=== PATIENT | male | born 1970 | race African-American/Black ===

== ENCOUNTER 2020-04-12 11:57 | Inpatient (IN) | payer SELFPAY ==
[~2020-04-12] VITALS: Ht 188 cm; Wt 113.4 kg
[~2020-04-12 11:57] MED LIST: CARDURA1 MG ORAL; IBUPROFEN600 MG ORAL; NKM; NORCO 10/3251 EA ORAL
[2020-04-12] MEDS ORDERED: Nitroglycerin 2% oint pkt TOPIC ONE (12:15)
[2020-04-12] MEDS ORDERED: LORazepam Inj 2mg/ml 1ml IV ONE (12:15)
[2020-04-12 12:17] VITALS: BP 152/98
--- NOTE | 2020-04-12 12:20 | NUR ---
ED Nurse Note: PT. AAOX4. AMBULATORY. PT. WALKED IN TO ER FROM HOME. PER PT., HE STARTED HAVING L-SIDED CP AT 0400 TODAY RADIATING TO HIS BACK. PER PT. HE TOOK 1GM OF ACETAMINOPHEN BUT NO RELIEF FROM IT. DENIES N/V. NO RESP DISTRESS NOTED AT THIS TIME
--- NOTE | 2020-04-12 12:26 | NUR ---
ED Nurse Note: CXR AT THE BEDSIDE
--- NOTE | 2020-04-12 12:43 | Emergency Room Report ---
History of Present Illness General Chief Complaint: Chest Pain Source: Patient Present Illness HPI Patient was awakened this morning with crushing substernal chest pain. Feels like somebody is sitting on his chest. Radiates somewhat towards his back. He has slight shortness of breath. In the past couple weeks he is had no dyspnea on exertion or chest pain symptoms. Patient does have risk factors of smoking. Has had lots of stress recently. Patient denies diabetes or high cholesterol. The patient denies hypertension however this is listed as one of his medical problems. Patient denies exposure to Covid positive contacts. No fevers, chills, sore throat, palpitations, nausea, vomiting, diarrhea, dysuria, abdominal pain, shortness of breath, joint pain, rashes, visual changes, dizziness, headache. Patient has a history of kidney stones. Allergies: Coded Allergies: No Known Allergies (Unverified , 12/31/12) COVID-19 Screening Contact w/high risk pt: No Experienced COVID-19 symptoms?: No COVID-19 Testing performed PATTERN FINISHER: No Patient History Past Medical History: see triage record Social History: Reports: smoking, alcohol use, drug use - THC Social History Narrative Iceberg 18/10 Reviewed Nursing Documentation: PMH: Agreed; PSxH: Agreed Nursing Documentation-PMH Hx Hypertension: Yes Review of Systems All Other Systems: negative except mentioned in HPI Physical Exam Vital Signs Date Time Temp Pulse Resp B/P (MAP) Pulse Ox O2 Delivery O2 Flow Rate FiO2 04/12/20 12:05 97.9 60 23 152/98 (116) 100 Room Air Sp02 EP Interpretation: reviewed, normal General Appearance: well appearing, no apparent distress, GCS 15, non-toxic Head: normocephalic Eyes: left eye other - Subconjunctival hemorrhage; bilateral eye PERRL, bilateral eye EOMI ENT: moist mucus membranes Neck: supple Respiratory: chest non-tender, lungs clear, normal breath sounds Cardiovascular #1: regular rate, rhythm, no edema Cardiovascular #2: 2+ radial (R) Gastrointestinal: normal inspection, normal bowel sounds, non tender, no mass, non-distended Musculoskeletal: back normal, normal range of motion, no calf tenderness, gait/station normal Neurologic: alert, oriented x3, grossly normal Psychiatric: other - Stressed Skin: no rash, warm/dry Medical Decision Making Diagnostic Impression: Primary Impression: Chest pain Qualified Codes: R07.9 - Chest pain, unspecified Additional Impression: Renal insufficiency ER Course Patient presents with crushing substernal chest pain with risk factors. Differential includes acute cardial infarction or acute coronary syndrome, reflux esophagitis, costochondritis, stress amongst others. Patient evaluated with EKG, chest x-ray and labs. Patient placed on a bed control specialist. Patient given aspirin, nitroglycerin paste and a dose of Ativan. EKG normal sinus rhythm with left axis deviation and minimal voltage criteria for left ventricular hypertrophy. Chest x-ray with globular heart. CBC normal. CMP with elevated BUN and creatinine. CPK slightly elevated. Minimally elevated BNP. Initial troponin negative. Patient still complaining about severe chest pain. Morphine administered. Patient still complaining about significant chest pain. Dilaudid ordered. Repeat troponin minimally elevated from previous but still normal. Due to risk factors and history patient admitted to telemetry to Dr. Page. Laboratory Tests Test 04/12/20 12:15 04/12/20 12:56 04/12/20 15:07 White Blood Count 9.2 K/UL (4.8-10.8) Red Blood Count 5.19 M/UL (4.70-6.10) Hemoglobin 15.1 G/DL (14.2-18.0) Hematocrit 43.1 % (42.0-52.0) Mean Corpuscular Volume 83 FL (80-99) Mean Corpuscular Hemoglobin 29.0 PG (27.0-31.0) Mean Corpuscular Hemoglobin Concent 34.9 G/DL (32.0-36.0) Red Cell Distribution Width 14.2 % (11.6-14.8) Platelet Count 218 K/UL (150-450) Mean Platelet Volume 8.8 FL (6.5-10.1) Neutrophils (%) (Auto) 72.1 % (45.0-75.0) Lymphocytes (%) (Auto) 18.4 % (20.0-45.0) L Monocytes (%) (Auto) 7.7 % (1.0-10.0) Eosinophils (%) (Auto) 0.3 % (0.0-3.0) Basophils (%) (Auto) 1.5 % (0.0-2.0) Prothrombin Time 10.7 SEC (9.30-11.50) Prothrombin Time INR 1.0 (0.9-1.1) Activated Partial Thromboplast Time 30 SEC (23-33) Sodium Level 139 MMOL/L (136-145) Potassium Level 3.9 MMOL/L (3.5-5.1) Chloride Level 104 MMOL/L (98-107) Carbon Dioxide Level 26 MMOL/L (21-32) Anion Gap 9 mmol/L (5-15) Blood Urea Nitrogen 17 mg/dL (7-18) Creatinine 1.4 MG/DL (0.55-1.30) H Estimated Glomerular Filtration Rate > 60 mL/min (>60) Glucose Level 124 MG/DL (74-106) H Calcium Level 8.5 MG/DL (8.5-10.1) Total Bilirubin 0.5 MG/DL (0.2-1.0) Aspartate Amino Transferase (AST) 17 U/L (15-37) Alanine Aminotransferase (ALT) 26 U/L (12-78) Alkaline Phosphatase 42 U/L (46-116) L Total Creatine Kinase 160 U/L (26-308) Troponin I 0.014 ng/mL (0.000-0.056) 0.018 ng/mL (0.000-0.056) Pro-B-Type Natriuretic Peptide 140 pg/mL (0-125) H Total Protein 6.9 G/DL (6.4-8.2) Albumin 3.7 G/DL (3.4-5.0) Globulin 3.2 g/dL Albumin/Globulin Ratio 1.2 (1.0-2.7) Urine Color Yellow Urine Appearance Clear Urine pH 6.5 (4.5-8.0) Urine Specific [place] 1.015 (1.005-1.035) Urine Protein Negative (NEGATIVE) Urine Glucose (UA) Negative (NEGATIVE) Urine Ketones 1+ (NEGATIVE) H Urine Blood Negative (NEGATIVE) Urine Nitrite Negative (NEGATIVE) Urine Bilirubin Negative (NEGATIVE) Urine Urobilinogen 1 MG/DL (0.0-1.0) H Urine Leukocyte Esterase 1+ (NEGATIVE) H Urine RBC 0 /HPF (0 - 0) Urine WBC 0-2 /HPF (0 - 0) Urine Squamous Epithelial Cells Occasional /LPF Urine Bacteria Occasional /HPF (NONE) Urine Opiates Screen Negative (NEGATIVE) Urine Barbiturates Screen Negative (NEGATIVE) Phencyclidine (PCP) Screen Negative (NEGATIVE) Urine Amphetamines Screen Negative (NEGATIVE) Urine Benzodiazepines Screen Negative (NEGATIVE) Urine Cocaine Screen Negative (NEGATIVE) Urine Marijuana (THC) Screen Positive (NEGATIVE) H EKG Diagnostic Results Rate: normal Rhythm: NSR ST Segments: no acute changes - LVH Rhythm Strip Diag. Results EP Interpretation: yes Rhythm: NSR, no PVC's, no ectopy Chest X-Ray Diagnostic Results Chest X-Ray Diagnostic Results : Chest X-Ray Ordered: Yes # of Views/Limited/Complete: 1 View Indication: Chest Pain EP Interpretation: Yes Interpretation: no consolidation, no effusion, no pneumothorax, other - Globular heart Impression: Other Electronically Signed by: Electronically signed by Addy Yoo MD Last Vital Signs Date Time Temp Pulse Resp B/P (MAP) Pulse Ox O2 Delivery O2 Flow Rate FiO2 04/12/20 16:34 97.0 57 18 186/109 (134) 99 04/12/20 16:11 Room Air Status: improved Disposition: ADMITTED INPATIENT Condition: Serious Scripts No Active Prescriptions or Reported Meds Referrals: NOT CHOSEN IPA/,REFERRING (PCP) Addy Yoo MD Apr 12, 2020 12:43
[2020-04-12 12:48] LABS: BASOPHILS % (AUTO) 1.5 % (0.0-2.0); EOSINOPHILS % (AUTO) 0.3 % (0.0-3.0); HEMATOCRIT 43.1 % (42.0-52.0); HEMOGLOBIN 15.1 G/DL (14.2-18.0); LYMPHOCYTES % (AUTO) 18.4 % (20.0-45.0); MEAN CORPUSCULAR VOLUME 83 FL (80-99); MONOCYTES % (AUTO) 7.7 % (1.0-10.0); NEUTROPHILS % (AUTO) 72.1 % (45.0-75.0); PLATELET COUNT 218 K/UL (150-450); RED BLOOD COUNT 5.19 M/UL (4.70-6.10); RED CELL DISTRIBUTION WIDTH 14.2 % (11.6-14.8); WHITE BLOOD COUNT 9.2 K/UL (4.8-10.8)
[2020-04-12 12:58] LABS: ANION GAP 9 mmol/L (5-15); BLOOD UREA NITROGEN 17 mg/dL (7-18); CALCIUM 8.5 MG/DL (8.5-10.1); CARBON DIOXIDE 26 MMOL/L (21-32); CHLORIDE 104 MMOL/L (98-107); CREATININE 1.4 MG/DL (0.55-1.30); POTASSIUM 3.9 MMOL/L (3.5-5.1); SODIUM 139 MMOL/L (136-145)
--- NOTE | 2020-04-12 12:59 | NUR ---
ED Nurse Note: Collected urine then sent.
[2020-04-12 13:03] LABS: APPEARANCE,URINE CLEAR; BILIRUBIN, URINE NEGATIVE (NEGATIVE); GLUCOSE, URINE (UA) NEGATIVE (NEGATIVE); KETONES,URINE 1+ (NEGATIVE); LEUKOCYTE ESTERASE ,URINE 1+ (NEGATIVE); NITRITE,URINE NEGATIVE (NEGATIVE); PH,URINE 6.5 (4.5-8.0); PROTEIN,URINE NEGATIVE (NEGATIVE); UROBILINOGEN,URINE 1 MG/DL (0.0-1.0)
[2020-04-12 13:09] LABS: COLOR,URINE YELLOW
[2020-04-12 13:09] LABS: ALANINE AMINOTRANSFERASE 26 U/L (12-78); ALBUMIN 3.7 G/DL (3.4-5.0); ALBUMIN/GLOBULIN RATIO 1.2 (1.0-2.7); ALKALINE PHOSPHATASE 42 U/L (46-116); ASPARTATE AMINO TRANSFERASE 17 U/L (15-37); BILIRUBIN,TOTAL 0.5 MG/DL (0.2-1.0); CREATINE KINASE 160 U/L (26-308)
[2020-04-12] MEDS ORDERED: Morphine Sulfate 4mg/ml Inj (IV USE ONLY) IVP ONE ×2 (13:15→16:15)
--- NOTE | 2020-04-12 13:15 | Diagnostic Imaging Report ---
EXAM: XR Chest, 1 View CLINICAL HISTORY: CP TECHNIQUE: Frontal view of the chest. COMPARISON: None FINDINGS: Hardware: None. Lungs/pleura: Normal. No focal consolidation. No pleural effusion or pneumothorax. Heart/mediastinum: Normal. No cardiomegaly. Soft tissues: Unremarkable. Bones: No acute fracture. Upper abdomen: Normal. IMPRESSION: No acute disease identified.
--- NOTE | 2020-04-12 13:55 | NUR ---
ED Nurse Note: Pt reports CP 10/10 at this time. Patient is asking for more pain medication. Dr Yoo notified.
[2020-04-12] MEDS ORDERED: HYDROmorphone 1mg/ml Carpuject IVP ONE (14:00)
[2020-04-12 14:15] VITALS: BP 167/91
--- NOTE | 2020-04-12 14:44 | NUR ---
ED Nurse Note: Patient sleeping on bed with no distress at this time. Will continue to closely monitor patient.
--- NOTE | 2020-04-12 15:59 | NUR ---
ED Nurse Note: Report given to Bettina CORRIGAN of telemetry unit.
[2020-04-12 16:03] VITALS: BP 172/95
--- NOTE | 2020-04-12 16:03 | NUR ---
ED Nurse Note: BP of 172/95 and CP of 01/04. Dr Tapia was notified.
--- NOTE | 2020-04-12 16:11 | NUR ---
ED Nurse Note: Patient transferred to telemetry unit with all his belongings.
--- NOTE | 2020-04-12 16:17 | NUR ---
NURSE NOTES: Pt arrived to room 219-2 from emergency room, received report from Colleen/SHEKHAR. On room air, no SOB notes. Pt complaining of chest pain, able to make needs known. equipment monitor phototypesetting applied, belongings check list done and signed by receiving nurse. Vital sign taken. Pt oriented to call light, encouraged to use when needed. Bed in the lowest position and locked, side rails up X2. Will contact primary Dr for admission orders.
[2020-04-12 16:34] VITALS: BP 186/109
[2020-04-12] MEDS ORDERED: Acetaminophen 650 MG SUPP RECTAL PRN (17:30)
[2020-04-12] MEDS ORDERED: Miralax 17gm pkt ORAL PRN (17:30)
[2020-04-12] MEDS: Docusate 100mg cap ORAL SCH ×2 (17:44→21:07)
[2020-04-12] MEDS: Aspirin Baby 81mg ORAL SCH (17:44)
[2020-04-12] MEDS: Morphine Sulfate 4mg/ml Inj (IV USE ONLY) IVP PRN (17:45)
--- NOTE | 2020-04-12 19:31 | NUR ---
NURSE NOTES: Call Dr Page to let him know about the pt BP 200/106. New orders were given.
--- NOTE | 2020-04-12 19:32 | NUR ---
NURSE HAND-OFF REPORT: Important Events on Shift:High blood pressure, complains of chest pain, Dr Josafat Page is aware. Patient Status: Stable Diet: Regular Pending Orders: Pending Results/Labs: Pending MD notification: Latest Vital Signs: Temperature 97.0 , Pulse 57 , B/P 200 /106 , Respiratory Rate 18 , O2 SAT 99 , Room Air, O2 Flow Rate 2.0 . Vital Sign Comment: EKG Rhythm: Sinus Bradycardia Rhythm change?: MD Notified?: - MD Response: Latest Gonzalez Fall Score: 30 Fall Risk: Medium Risk Safety Measures: Call light Within Reach, Bed Alarm Zone 1, Side Rails Side Rails x2, Bed position . Fall Precautions: Yellow Socks Yellow Gown Patient Fall Education Report given to Arti/SHEKHAR.
[2020-04-12 20:00] VITALS: BP 204/104
--- NOTE | 2020-04-12 20:04 | NUR ---
NURSE NOTES: Received patient report from SHEKHAR Dunbar. Patient is AO x4 awake and able to make needs known. Patient shows no signs of distress but still complains of some chest pain although states that it has reduced. Patient is on 2L nasal canula and denies feeling short of breath. IV is intact and patent. There are no signs of erythema, infiltration, or bleeding. Bed is in the lowest position, call light si within reach, side rails up x3. Will continue to monitor.
[2020-04-12] MEDS: Morphine Sulfate 2mg/ml Inj(IV/IM USE ONLY) IVP PRN (22:51)
[2020-04-13] VITALS (8 sets, daily range): BP systolic 145–197; BP diastolic 78–119
[2020-04-13] MEDS: Morphine Sulfate 2mg/ml Inj(IV/IM USE ONLY) IVP PRN (04:41)
--- NOTE | 2020-04-13 07:01 | NUR ---
NURSE HAND-OFF REPORT: Important Events on Shift:[BP elevated. Clonodine given. Patient is still complaining of chest pain, given 2mg Morphine. ] Patient Status: [Full code] Diet: [Regular] Pending Orders: [] Pending Results/Labs:[] Pending MD notification:[] Latest Vital Signs: Temperature 97.3 , Pulse 63 , B/P 174 /80 , Respiratory Rate 20 , O2 SAT 97 , Room Air, O2 Flow Rate 2.0 . Vital Sign Comment: [] EKG Rhythm: Sinus Rhythm Rhythm change?: N MD Notified?: - MD Response: Latest Gonzalez Fall Score: 30 Fall Risk: Medium Risk Safety Measures: Call light Within Reach, Bed Alarm Zone 2, Side Rails Side Rails x3, Bed position Low and Locked. Fall Precautions: Patient Fall Education Report given to [BEAU Baig].:
--- NOTE | 2020-04-13 07:45 | NUR ---
NURSE NOTES: Received patient report from SHEKHAR Chi. Patient is A/A/Ox4. able to make needs known. patient is on RA and shows no signs of distress but still complains of some chest pain and more like heartburn. PIV is intact and patent. There are no signs of erythema, infiltration, or bleeding. Bed is in the lowest position, call light is within easy reach, siderails are up x3. Will continue to monitor.
[2020-04-13] MEDS: Docusate 100mg cap ORAL SCH ×2 (08:02→20:58)
[2020-04-13] MEDS: Aspirin Baby 81mg ORAL SCH (08:02)
[2020-04-13 08:15] LABS: CHOLESTEROL 174 MG/DL (< 200); HDL CHOLESTEROL 45 MG/DL (40-60); TRIGLYCERIDES 114 MG/DL (30-150)
[2020-04-13] MEDS: Morphine Sulfate 4mg/ml Inj (IV USE ONLY) IVP PRN (08:46)
--- NOTE | 2020-04-13 10:16 | NUR ---
NURSE NOTES: 5MG AMLODIPINE X1 GIVEN FOR B/P 183/109. PATIENT IS RESTING ON SUPINE POSITION AND ON O2 2L VIA NC INPLACED. DENIES OF PAIN/DISCOMFORT @ THIS TIME. WILL RECHECK B/P. PMD RESPONDED TO [facility]IC[facility] AND PLACED HIS OWN ORDER. WILL CONT TO MONITOR.
--- NOTE | 2020-04-13 12:53 | History & Physical ---
History and Physical History & Physicial [id number] Abdelrahman Page MD Apr 13, 2020 12:53
--- NOTE | 2020-04-13 13:44 | History and Physical Report ---
DATE OF ADMISSION: 04/12/2020 CHIEF COMPLAINT: Chest pain. HISTORY OF PRESENT ILLNESS: This is a 49-year-old male with no cardiac history who presents with severe chest pain which started at about 03:30 in the morning on the day of admission. The patient was lying down and he thought like a bubble coming up to his chest. He felt severe pressure 10/10. It lasted for actually 4 hours. The patient finally came to the emergency room and was treated. He still has some chest pain, although, it is much better now. Chest pain also is worse when he tries to sit up. PAST MEDICAL HISTORY: He denies history of hypertension, diabetes, coronary artery disease. SOCIAL HISTORY: The patient works in [employer] in a [employer]. He smokes about a cigar a day. No history of alcohol abuse. ALLERGIES: No known drug allergies. REVIEW OF SYSTEMS: Noncontributory. PHYSICAL EXAMINATION: GENERAL: The patient is a 49-year-old male, in no acute distress. VITAL SIGNS: Blood pressure 197/119, pulse 123, temperature 98.3, respirations 18. HEENT: [place] conjunctivae. Anicteric sclerae. NECK: Supple. LUNGS: Clear to auscultation. HEART: S1 and S2 without murmurs or rubs. ABDOMEN: Soft, nontender. EXTREMITIES: No cyanosis or edema. LABORATORY FINDINGS: CBC shows WBC of 9200, hematocrit 43.5, hemoglobin 15.1, platelets 218,000. Chemistry panel shows serum sodium 139, potassium 3.9, chloride 104, CO2 26, BUN 17, creatinine 1.4, blood sugar is 124. UA was unremarkable. EKG showed normal sinus rhythm, left axis deviation, minimal voltage criteria for left ventricular hypertrophy. ASSESSMENT: This is a 49-year-old male who was admitted for atypical chest pain. Chest pain was during rest and also worse with movements, very likely musculoskeletal. However, the patient has had severe hypertension which he was not aware of. Diastolic dysfunction is a good possibility. PLAN: The patient was started on amlodipine, the dose was increased currently to 10 mg daily. He will be on p.r.n. clonidine, chlorthalidone will be added. The patient will have echocardiogram and further plans will be made based on those results. Abdelrahman Page M.D. DR: Viraj JOB#: [id number] CC:
--- NOTE | 2020-04-13 16:09 | NUR ---
NURSE NOTES: CALLED DR RICHTER RE: 2D ECHO RESULT AND TEMP 101.1 AND B/P 180/108. AWAITING FOR A CALLBACK. Addendum: 04/13/20 at 1616 by YUMIKO PARK LVN OBTAINED NEW ORDERS AND CARRIED OUT
[2020-04-13] MEDS: cloNIDine 0.2mg Tab ORAL SCH (17:10)
[2020-04-13 18:49] LABS: APPEARANCE,URINE CLEAR; BILIRUBIN, URINE NEGATIVE (NEGATIVE); COLOR,URINE PALE YELLOW; GLUCOSE, URINE (UA) NEGATIVE (NEGATIVE); KETONES,URINE NEGATIVE (NEGATIVE); LEUKOCYTE ESTERASE ,URINE NEGATIVE (NEGATIVE); NITRITE,URINE NEGATIVE (NEGATIVE); PH,URINE 6.5 (4.5-8.0); PROTEIN,URINE NEGATIVE (NEGATIVE); UROBILINOGEN,URINE NORMAL MG/DL (0.0-1.0)
--- NOTE | 2020-04-13 18:51 | NUR ---
NURSE NOTES: sent u/a and c/s to lab. will cont to monitor.
--- NOTE | 2020-04-13 19:22 | NUR ---
NURSE HAND-OFF REPORT: Important Events on Shift:[COVID NEG; KEPT CALM AND COMFORTABLE] Patient Status: [CALM] Diet: [REG] Pending Orders: [LABS] Pending Results/Labs:[AM] Pending MD notification:[] Latest Vital Signs: Temperature 98.5 , Pulse 76 , B/P 164 /99 , Respiratory Rate 19 , O2 SAT 97 , Room Air, O2 Flow Rate 2.0 . Vital Sign Comment: [] EKG Rhythm: Sinus Rhythm Rhythm change?: N MD Notified?: - MD Response: Latest Gonzalez Fall Score: 30 Fall Risk: Medium Risk Safety Measures: Call light Within Reach, Bed Alarm Zone 1, Side Rails Side Rails x2, Bed position Low and Locked. Fall Precautions: Patient Fall Education Report given to [DIMPLE].
--- NOTE | 2020-04-13 19:24 | NUR ---
NURSE NOTES: RECEIVED REPORT FROM BEAU YATES. PT IN BED, AWAKE, ALERT/ORIENTED X4, ABLE TO MAKE NEEDS KNOWN. NO RESP DISTRESS NOTED. NO C/O PAIN OR DISTRESS. BED IN LOW POSITION & LOCKED. SIDE RAILS UP X2. CALL LIGHT WITH IN REACH. BED ALARM ON.
[2020-04-14] VITALS: BP 170/99
[2020-04-14] MEDS: Morphine Sulfate 4mg/ml Inj (IV USE ONLY) IVP PRN ×2 (00:59→05:44)
[2020-04-14 04:00] VITALS: BP 179/88
--- NOTE | 2020-04-14 07:45 | NUR ---
NURSE NOTES: Patient seen in bed asleep in low fowlers position with no acute signs of distress.The patient is on 2L nasal cannula with oxygen saturation within normal limits. The patient has a right 20G IV that is saline locked, clean , patent and intact. The patients bed is in lowest position, locked, side rails x3, bed alarm in zone 1 and call light within reach.
[2020-04-14 08:00] VITALS: BP 172/101
--- NOTE | 2020-04-14 08:00 | NUR ---
NURSE HAND-OFF REPORT: Important Events on Shift:[PT NOTED B/P IN 170'S PRN BP MEDS GIVEN ] Patient Status: [STABLE/FULL CODE] Diet: [] Pending Orders: [] Pending Results/Labs:[] Pending MD notification:[] Latest Vital Signs: Temperature 98.4 , Pulse 80 , B/P 179 /94 , Respiratory Rate 18 , O2 SAT 95 , Room Air, O2 Flow Rate 2.0 . Vital Sign Comment: [] EKG Rhythm: Sinus Rhythm Rhythm change?: Y MD Notified?: N - MD Response: Latest Gonzalez Fall Score: 30 Fall Risk: Medium Risk Safety Measures: Call light Within Reach, Bed Alarm Zone 2, Side Rails Side Rails x3, Bed position Low and Locked. Fall Precautions: Patient Fall Education Report given to [moisés Baer].
[2020-04-14] MEDS: Aspirin Baby 81mg ORAL SCH (08:42)
[2020-04-14] MEDS: Docusate 100mg cap ORAL SCH (08:42)
[2020-04-14] MEDS: cloNIDine 0.2mg Tab ORAL SCH ×2 (08:43→13:06)
[2020-04-14 10:38] LABS: BASOPHILS % (AUTO) 1.1 % (0.0-2.0); EOSINOPHILS % (AUTO) 0.4 % (0.0-3.0); HEMATOCRIT 50.7 % (42.0-52.0); HEMOGLOBIN 17.2 G/DL (14.2-18.0); LYMPHOCYTES % (AUTO) 15.5 % (20.0-45.0); MEAN CORPUSCULAR VOLUME 83 FL (80-99); MONOCYTES % (AUTO) 17.4 % (1.0-10.0); NEUTROPHILS % (AUTO) 65.7 % (45.0-75.0); PLATELET COUNT 237 K/UL (150-450); RED BLOOD COUNT 6.13 M/UL (4.70-6.10); RED CELL DISTRIBUTION WIDTH 13.9 % (11.6-14.8); WHITE BLOOD COUNT 12.8 K/UL (4.8-10.8)
--- NOTE | 2020-04-14 10:38 | NUR ---
CASE MANAGEMENT:REVIEW 49 YR OLD MALE WALKED INTO ER CC; CHEST PAIN RADIATING TO BACK SI: ACS. RENAL INSUFFICIENCY 97.8 60 23 152/98 100% ON RA CR+1.4 TROPONIN(-) IS: ASA PO X1 NITRO 1" X1 IV HYDRALAZINE X1 IV ATIVAN X1 IV PEPCID X1 IV MORPHINE X2 IV DILAUDID X1 : TO TELEMETRY UNIT DCP; FROM HOME PLAN: 2DECHO ECHO STRESS TEST ?
[2020-04-14 11:02] LABS: ALANINE AMINOTRANSFERASE 22 U/L (12-78); ALBUMIN 3.6 G/DL (3.4-5.0); ALBUMIN/GLOBULIN RATIO 0.9 (1.0-2.7); ALKALINE PHOSPHATASE 47 U/L (46-116); ANION GAP 10 mmol/L (5-15); ASPARTATE AMINO TRANSFERASE 13 U/L (15-37); BILIRUBIN,TOTAL 1.2 MG/DL (0.2-1.0); BLOOD UREA NITROGEN 14 mg/dL (7-18); CALCIUM 9.4 MG/DL (8.5-10.1); CARBON DIOXIDE 25 MMOL/L (21-32); CHLORIDE 100 MMOL/L (98-107); CREATININE 1.3 MG/DL (0.55-1.30); POTASSIUM 3.7 MMOL/L (3.5-5.1); SODIUM 135 MMOL/L (136-145)
[2020-04-14 11:04] LABS: BILIRUBIN,DIRECT 0.2 MG/DL (0.0-0.3)
[2020-04-14 12:00] VITALS: BP 150/78
--- NOTE | 2020-04-14 13:06 | General Progress Note ---
Subjective Allergies: Coded Allergies: No Known Allergies (Unverified , 12/31/12) Subjective CP is better Objective Last 24 Hour Vital Signs Date Time Temp Pulse Resp B/P (MAP) Pulse Ox O2 Delivery O2 Flow Rate FiO2 04/14/20 09:00 Nasal Cannula 2.0 04/14/20 08:43 172/101 04/14/20 08:43 82 172/101 04/14/20 08:00 64 04/14/20 08:00 98.0 68 18 172/101 (124) 95 04/14/20 05:43 179/94 04/14/20 04:00 58 04/14/20 04:00 98.4 80 18 179/88 (118) 95 04/14/20 00:00 98.6 63 18 170/99 (122) 95 04/14/20 00:00 66 04/13/20 23:42 170/99 04/13/20 21:00 Nasal Cannula 2.0 04/13/20 20:00 99.0 80 18 145/85 (105) 99 04/13/20 20:00 58 04/13/20 18:35 98.5 04/13/20 18:34 98.5 76 164/99 (120) 04/13/20 17:10 180/108 04/13/20 16:00 101.1 65 19 180/108 (132) 97 04/13/20 16:00 68 04/13/20 13:45 68 186/105 (132) Intake and Output 04/13/20 04/14/20 19:00 07:00 Intake Total 600 ml 300 ml Output Total 350 ml Balance 250 ml 300 ml Intake Oral 600 ml 300 ml Output Urine Total 350 ml # Voids 4 3 Laboratory Tests 04/13/20 15:10: Troponin I 0.009 04/13/20 16:00: Urine Color Pale yellow, Urine Appearance Clear, Urine pH 6.5, Urine Specific [place] 1.015, Urine Protein Negative, Urine Glucose (UA) Negative, Urine Ket ones Negative, Urine Blood 2+H, Urine Nitrite Negative, Urine Bilirubin Negative, Urine Urobilinogen Normal, Urine Leukocyte Esterase Negative, Urine RBC 20-30H, Urine WBC 0-2, Urine Squamous Epithelial Cells Occasional, Urine Bacteria Occasional 04/14/20 10:10: White Blood Count 12.8H, Red Blood Count 6.13H, Hemoglobin 17.2, Hematocrit 50.7, Mean Corpuscular Volume 83, Mean Corpuscular Hemoglobin 28.0, Mean Corpuscular Hemoglobin Concent 33.9, Red Cell Distribution Width 13.9, Platelet Count 237, Mean Platelet Volume 8.9, Neutrophils (%) (Auto) 65.7, Lymphocytes (%) (Auto) 15.5L, Monocytes (%) (Auto) 17.4H, Eosinophils (%) (Auto) 0.4, Basophils (%) (Auto) 1.1, Sodium Level 135L, Potassium Level 3.7, Chloride Level 100, Carbon Dioxide Level 25, Anion Gap 10, Blood Urea Nitrogen 14, Creatinine 1.3, Estimat Glomerular Filtration Rate > 60, Glucose Level 121H, Calcium Level 9.4, Total Bilirubin 1.2H, Direct Bilirubin 0.2, Aspartate Amino Transf (AST/SGOT) 13L, Alanine Aminotransferase (ALT/SGPT) 22, Alkaline Phosphatase 47, Total Protein 7.7, Albumin 3.6, Globulin 4.1, Albumin/Globulin Ratio 0.9L Height (Feet): 6 Height (Inches): 2.00 Weight (Pounds): 250 Assessment/Plan Assessment/Plan: atypical Cp likely musculoskeletal uncontrolled HTN Add Minoxidil DC today Abdelrahman Page MD Apr 14, 2020 13:06
[2020-04-14] MEDS ORDERED: FAMOTIDINE20 MG ORAL (13:35)
[2020-04-14] MEDS ORDERED: LONITEN10 MG ORAL (13:35)
[2020-04-14] MEDS ORDERED: ASPIRIN81 MG ORAL (13:35)
[2020-04-14] MEDS ORDERED: CLONIDINE 0.2M0.2 MG ORAL (13:35)
[2020-04-14] MEDS ORDERED: NORVASC10 MG ORAL (13:35)
[2020-04-14] MEDS ORDERED: CHLORTHALIDONE25 MG ORAL (13:35)
[2020-04-14] MEDS ORDERED: Minoxidil 10mg tab ORAL SCH (14:00)
[2020-04-14 14:38] VITALS: BP 150/78
--- NOTE | 2020-04-14 16:17 | NUR ---
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 The patient was given discharge instructions, signed and acknowledged belongings list and education on home care. Patient was given prescription with medications to take at home and all medications were explained with education on medication, indication, for benefits, side effects and all patients questions were answered. The patients IV was discontinued and was clean and intact. the patient was discontinued from the monitoring coordinator. The patient did not complain of any pain and was under no acute signs of distress with stable VS. Patient was escorted to private vehicle and was off the floor at 1600.
--- NOTE | 2020-04-15 14:12 | Discharge Summary ---
Discharge Summary Discharge Summary _ Date of admission: 04/12/2020 Date of discharge: 04/14/[address] Page History of Present Illness and Brief Hospital Course Mr. Chew is a 49-year-old male with no cardiac history, who presented to the ED for evaluation of severe chest pain which started at about 03:30 in the morning on the day of admission. Patient reported that he was lying down and he felt a bubble coming up to his chest. He reported severe pressure that was 10 out of 10 in severity which lasted for, about 4 hours. Patient was given aspirin, nitroglycerin paste and a dose of Ativan. The initial EKG revealed normal sinus rhythm with left axis deviation. His chest x-ray revealed no acute disease. Patient was also given morphine and Dilaudid for uncontrolled chest pain. He reported no medical history but his EMR indicated that he had history of hypertension and kidney stone. Patient was started on amlodipine, clonidine as needed, and chlorthalidone. Minoxidil was also added later. His initial systolic blood pressure on arrival was in the 150s. His systolic BP went as high as 202 but is able to be brought down to the 150s by the time of discharge. Given his chest pain occurred at rest and was worse with movement, it was likely musculoskeletal. Patient has had severe hypertension which she was not aware of. Diastolic dysfunction was also a good possibility. On the day of discharge, patient was medically stable. Patient did not complain of any pain and was under no acute signs of distress with stable vital signs. His blood pressure was still elevated but at a stable level. Consultants: None Discharge Condition Improved and stable, elevated BP Final diagnoses Atypical chest pain, likely musculoskeletal Uncontrolled hypertension History of cholelithiasis I have been assigned to dictate discharge summary for this account. I was not involved in the patient's management Deacon Dobson Apr 15, 2020 14:12
== END 2020-04-14 16:07 | disposition home or self-care (01) | DRG 313 ==
LOC: EMR 12:26 → 2E 13:10 → EDBEDREQ 15:26
DX: R07.89 Other chest pain (principal); I10 Essential (primary) hypertension
CPT/HCPCS: 36415; 71045; 80053; 80061; 80307; 81003; 82248; 82550; 83036; 83880; 84443; 84484; 85025; 85610; 85730; 87040; 87086; 93005; 93306; 96374; 96375; 96376; 99285; U0002